=== PATIENT | female | born 1985 | race Caucasian/White ===

== ENCOUNTER 2019-03-06 10:59 | Emergency (ER) | payer BC ==
[~2019-03-06] VITALS: Ht 154.9 cm; Wt 64.9 kg
[2019-03-06 11:00] VITALS: Ht 154.9 cm; Wt 64.9 kg
[2019-03-06 12:24] LABS: BASOPHIL % 0.4 % (0-2); PLATELET COUNT 317 x10^3mcL (130-400); RED CELL DISTRIBUTION WIDTH 12.9 % (11.5-14.5)
[2019-03-06 12:35] LABS: CALCIUM 8.7 mg/dL (8.5-10.1); CARBON DIOXIDE 27.9 mmol/L (21-32); CHLORIDE SERUM 101 mmol/L (98-107); CREATININE SERUM 0.7 mg/dL (0.6-1.0); GFR1 > 60 mL/min; GLUCOSE SERUM 92 mg/dL (74-106); POTASSIUM SERUM 3.2 mmol/L (3.5-5.1); SODIUM SERUM 139 mmol/L (136-145)
[2019-03-06 13:58] VITALS: BP 146/96
== END 2019-03-06 13:58 | disposition home or self-care (01) ==
LOC: ED 10:59
PROVIDERS: Emergency Medicine
DX: I10 Essential (primary) hypertension (principal)
CPT/HCPCS: 36415